=== PATIENT | female | born 1990 | race Caucasian/White ===

== ENCOUNTER 2017-01-24 20:30 | Emergency (ER) | payer OTHER ==
[2017-01-24 20:30] VITALS: BMI 21.2
[2017-01-24 20:37] VITALS: BP 106/71; PULSE 70; TEMP 98; O2SAT 98
[2017-01-24 21:00] LABS: RBC URINE 91 /hpf (0-3); URINE BACTERIA OCC (<OCC); URINE BILIRUBIN NEGATIVE (NEGATIVE); URINE BLOOD 3+ (NEGATIVE); URINE COLOR Yellow (YELLOW); URINE GLUCOSE (UA) NORMAL (Normal); URINE KETONE NEGATIVE (NEGATIVE); URINE LEUKOCYTE ESTERASE NEG Leu/uL (Negative); URINE PROTEIN 1+ mg/dL (NEGATIVE); URINE UROBILINOGEN NORMAL mg/dL (0.2-1.0); WBC URINE 5 /hpf (0-5)
--- NOTE | 2017-01-24 22:03 | C.PDOC ---
History Of Present Illness A 26 year old female presents to the emergency room with complaints of vaginal pruritis and vaginal discharge for 1 week. Patient was seen by [facility] 2 weeks ago and was diagnosed with bacterial vaginosis. Patient was given Metrogel which finished 3 days ago. Patient reports continued discharge. Patient states that she went to the [facility] and was told to wait a little bit longer for symptoms to resolve. Patient felt uncomfortable and decided to come to the ER. Patient denies any dysuria, frequency, hematuria, abdominal pain, back pain, incontinence, fever, chills, or any other complaints. Time Seen by Provider: 01/24/17 20:48 Chief Complaint (Nursing): Female Genitourinary History Per: Patient History/Exam Limitations: no limitations Onset/Duration Of Symptoms: Other (1 week) Current Symptoms Are (Timing): Still Present Severity: Mild Quality Of Discomfort: Other (Uncomfortable) Associated Symptoms: denies: Fever, Chills, Urinary Symptoms Alleviating Factors: None Recent travel outside of the [place]: No Past Medical History Reviewed: Historical Data, Nursing Documentation, Vital Signs Vital Signs: Last Vital Signs Temp 98 F 01/24/17 20:35 Pulse 70 01/24/17 20:35 Resp 20 01/24/17 22:20 BP 106/71 01/24/17 20:35 Pulse Ox 98 01/24/17 22:33 - [facility] Procedures INJECT/INFUSE NEC (06/10/13) Family History: States: Unknown Family Hx - Social History Hx Tobacco Use: No Hx Alcohol Use: No Hx Substance Use: No - Immunization History Hx Tetanus Toxoid Vaccination: No Hx Influenza Vaccination: No Hx Pneumococcal Vaccination: No Review Of Systems Except As Marked, All Systems Reviewed And Found Negative. Constitutional: Negative for: Fever, Chills Genitourinary: Positive for: Vaginal Discharge. Negative for: Dysuria, Frequency, Incontinence, Hematuria Physical Exam - Physical Exam Appears: Well Skin: Normal Color, Warm, Dry Head: Atraumatic, Normacephalic Eye(s): bilateral: Normal Inspection Cardiovascular: Rhythm Regular Respiratory: Normal Breath Sounds, No Rales, No Rhonchi, No Wheezing Gastrointestinal/Abdominal: Soft, No Tenderness, No Guarding, No Rebound Pelvic: No Vaginal Bleeding, Vaginal Discharge (White clumps of cottage cheese like discharge), No Cervical Motion Tenderness, No Adnexal Tenderness, No Mass Extremity: Normal ROM, No Tenderness, Swelling (Volar swelling) Neurological/Psych: Oriented x3, Normal Speech ED Course And Treatment - Laboratory Results Urine POC: Negative O2 Sat by Pulse Oximetry: 98 Progress Note: Urine Preg was negative. Patient was swabbed, but didn't treat for GC/Chlamydia because clinical presentation looks like vaginitis. Patient received Diflucan and prescription for tablets to take in 1 week, if symptoms do not resolve. Patient denies any abdominal pain, vaginal bleeding, dysuria, frequency, back pain, or any other complaints. Patient is afebrile and stable for discharge. Patient instructed to follow up with [facility] within 1-2 days. Disposition - Disposition Disposition: HOME/ ROUTINE Disposition Time: 22:00 Condition: STABLE Additional Instructions: Follow up with your OBGYN within 1-2 days. Return to Ed if feel worse. Prescriptions: Fluconazole [Diflucan] 150 mg PO ONCE #1 tab Instructions: Vulvovaginal Candidiasis (ED) - Clinical Impression Clinical Impression: Candidal vulvovaginitis - Scribe Statement The provider has reviewed the documentation as recorded by the Scribmigel Galvan All medical record entries made by the Danielaibmigel were at my direction and personally dictated by me. I have reviewed the chart and agree that the record accurately reflects my personal performance of the history, physical exam, medical decision making, and the department course for this patient. I have also personally directed, reviewed, and agree with the discharge instructions and disposition.
[2017-01-24 22:21] VITALS: RESP 20
== END 2017-01-24 22:20 | disposition home or self-care (01) ==
LOC: C.ER 20:30
DX: B37.3 Candidiasis of vulva and vagina (principal)

== ENCOUNTER 2017-05-09 19:10 | Emergency (ER) | payer OTHER ==
[2017-05-09 19:10] VITALS: BMI 21.2
[2017-05-09 19:44] VITALS: BP 111/74; PULSE 85; RESP 16; TEMP 98; O2SAT 100
[2017-05-09 20:29] LABS: RBC URINE 24 /hpf (0-3); URINE BILIRUBIN NEGATIVE (NEGATIVE); URINE BLOOD 2+ (NEGATIVE); URINE COLOR Yellow (YELLOW); URINE GLUCOSE (UA) NORMAL (Normal); URINE KETONE NEGATIVE (NEGATIVE); URINE LEUKOCYTE ESTERASE NEG Leu/uL (Negative); URINE PROTEIN NEGATIVE (NEGATIVE); URINE UROBILINOGEN NORMAL mg/dL (0.2-1.0); WBC URINE < 1 /hpf (0-5)
--- NOTE | 2017-05-09 20:51 | C.PDOC ---
History Of Present Illness 26 yo female come in for evaluation of vaginal irritation, white discharges developed for past few days " after sexual intercourse and condom broke". Otherwise, pt denies fever, chills, sore throat, abd. pain, N/V, back pain, hematuria, denies lesion. Ambulate to ED for evaluation, not in any apparent distress. Time Seen by Provider: 05/09/17 19:44 Chief Complaint (Nursing): Female Genitourinary History Per: Patient Onset/Duration Of Symptoms: Gradual Past Medical History Reviewed: Historical Data, Nursing Documentation, Vital Signs Vital Signs: Last Vital Signs Temp 98 F 05/09/17 19:35 Pulse 85 05/09/17 19:35 Resp 16 05/09/17 19:35 BP 111/74 05/09/17 19:35 Pulse Ox 100 05/09/17 19:35 - Medical History PMH: No Chronic Diseases Surgical History: No Surg Hx - [facility] Procedures INJECT/INFUSE NEC (06/10/13) Family History: States: No Known Family Hx - Social History Hx Tobacco Use: No Hx Alcohol Use: No Hx Substance Use: No - Immunization History Hx Tetanus Toxoid Vaccination: No Hx Influenza Vaccination: No Hx Pneumococcal Vaccination: No Review Of Systems Except As Marked, All Systems Reviewed And Found Negative. Constitutional: Negative for: Fever, Chills ENT: Negative for: Ear Discharge, Nose Discharge, Throat Pain Cardiovascular: Negative for: Chest Pain Respiratory: Negative for: Cough, Shortness of Breath, Wheezing Gastrointestinal: Negative for: Nausea, Vomiting, Abdominal Pain Genitourinary: Positive for: Vaginal Discharge. Negative for: Dysuria, Frequency, Incontinence, Hematuria, Vaginal Bleeding, Rash Musculoskeletal: Negative for: Back Pain Skin: Negative for: Rash Neurological: Negative for: Weakness, Numbness, Altered Mental Status, Headache , Dizziness Physical Exam - Physical Exam Appears: Well, Non-toxic, No Acute Distress Skin: Normal Color, Warm, No Rash Nose: No Discharge Oral Mucosa: Moist, No Drooling Throat: No Erythema, No Exudate, No Drooling Neck: Supple Cardiovascular: Rhythm Regular Respiratory: No Decreased Breath Sounds, No Accessory Muscle Use, No Stridor, No Wheezing Gastrointestinal/Abdominal: Soft, No Tenderness, No Distention, No Guarding Back: No CVA Tenderness Pelvic: Other (refused) Extremity: Normal ROM, No Tenderness, No Pedal Edema, No Deformity Neurological/Psych: Oriented x3, Normal Speech ED Course And Treatment - Laboratory Results Urine POC: Negative O2 Sat by Pulse Oximetry: 100 Pulse Ox Interpretation: Normal Progress Note: On re-evaluation, pt is afebrile, hemodynamicaly stable. Non- toxic. Ambulatory in ED. PuslEOx 100% RA. ENT: no acute findings. Lungs: CT B/L, BS equal B/L. ABd: benign, (-) guarding, (-) rebound. Back: (-) CVA tenderness. UA review and appears normal. Pt was offered STD tx-refused, pt sts " has scheduled appoitment next week with [facility] and will do all there". Pt has clinical findings c/w vulvovaginitis. Pt advised and ref. to F/U with [facility] as scheduled. return to ED if any worsening or new changes. Disposition Counseled Patient/Family Regarding: Studies Performed, Diagnosis, Need For Followup, Rx Given - Disposition [facility] Disposition: HOME/ ROUTINE Disposition Time: 20:51 Condition: STABLE Additional Instructions: Encourage fluids Take medication as prescribed Follow up with [facility] in 2-3 days for re-evaluation. Return to ED if any worsening or new changes. Prescriptions: Miconazole/Cleanser 17 On Wipe [Monistat 7 Combination Pack] 1 each VG HS #1 kit Instructions: Vulvovaginal Candidiasis (ED) Forms: [employer] (Yakut) - Clinical Impression Clinical Impression: Vaginitis and vulvovaginitis
== END 2017-05-09 21:07 | disposition home or self-care (01) ==
LOC: C.ER 19:10
DX: N76.0 Acute vaginitis (principal)

== ENCOUNTER 2017-06-28 23:27 | Emergency (ER) | payer OTHER ==
[2017-06-28 23:28] VITALS: BMI 21.2
--- NOTE | 2017-06-29 00:45 | C.PDOC ---
History Of Present Illness 26 year old female who presents to the ER with a complaint of an itchy insect bite to the right arm and right leg. Denies difficulty breathing, fever, or recent travel. Time Seen by Provider: 06/28/17 23:58 Chief Complaint (Nursing): Abnormal Skin Integrity History Per: Patient History/Exam Limitations: no limitations Onset/Duration Of Symptoms: Hrs Current Symptoms Are (Timing): Still Present Location Of Injury: Right: Arm, Leg Quality Of Symptoms: Itching Recent travel outside of the [place]: No Past Medical History Reviewed: Historical Data, Nursing Documentation, Vital Signs Vital Signs: Last Vital Signs Temp 98 F 06/29/17 00:50 Pulse 77 06/29/17 00:50 Resp 17 06/29/17 00:50 BP 123/79 06/29/17 00:50 Pulse Ox 98 06/29/17 02:57 - Medical History PMH: No Chronic Diseases Surgical History: No Surg Hx - [facility] Procedures INJECT/INFUSE NEC (06/10/13) Family History: States: Unknown Family Hx - Social History Hx Tobacco Use: No Hx Alcohol Use: No Hx Substance Use: No - Immunization History Hx Tetanus Toxoid Vaccination: No Hx Influenza Vaccination: No Hx Pneumococcal Vaccination: No Review Of Systems Constitutional: Negative for: Fever, Chills ENT: Negative for: Throat Swelling Respiratory: Negative for: Shortness of Breath, Wheezing Skin: Positive for: Rash Physical Exam - Physical Exam Appears: Non-toxic, No Acute Distress Skin: Warm, Dry, Rash (Scattered erythematous papules to right upper extremity and bilateral lower extremities. No swelling or warmth.) Head: Atraumatic, Normacephalic Oral Mucosa: Moist Chest: Symmetrical, No Tenderness Cardiovascular: Rhythm Regular, No Murmur Respiratory: Normal Breath Sounds, No Rales, No Rhonchi, No Stridor, No Wheezing Extremity: Normal ROM (x4) Pulses: Left Radial: Normal, Right Radial: Normal, Left Dorsalis Pedis: Normal, Right Dorsalis Pedis: Normal Neurological/Psych: Oriented x3, Normal Speech, Normal Cognition Gait: Steady ED Course And Treatment O2 Sat by Pulse Oximetry: 98 (Room air) Pulse Ox Interpretation: Normal Progress Note: Benadryl administered. On reevaluation, patient itchiness has resolved, will discharge home with wound care instructions and instruct to follow up with PMD. Disposition Counseled Patient/Family Regarding: Diagnosis, Need For Followup, Rx Given - Disposition Referrals: Bernardo Carey MD [Staff Provider] - Disposition: HOME/ ROUTINE Disposition Time: 00:43 Condition: STABLE Additional Instructions: May use hydrocortisone cream Claritin or zyrtec if needed for itching Return to ER if increasing pain, fever, swelling or draining Instructions: Insect Bite or Sting (ED) Forms: [employer] (Macanese) - Clinical Impression Clinical Impression: Insect bite - Scribe Statement The provider has reviewed the documentation as recorded by the Scribmigel Basurto All medical record entries made by the Danielaibmigel were at my direction and personally dictated by me. I have reviewed the chart and agree that the record accurately reflects my personal performance of the history, physical exam, medical decision making, and the department course for this patient. I have also personally directed, reviewed, and agree with the discharge instructions and disposition.
[2017-06-29 00:51] VITALS: BP 123/79; PULSE 77; RESP 17; TEMP 98
[2017-06-29 02:34] VITALS: O2SAT 98
== END 2017-06-29 00:52 | disposition home or self-care (01) ==
LOC: C.ER 23:27
DX: S40.861A Insect bite (nonvenomous) of right upper arm, initial encounter (principal); S80.862A Insect bite (nonvenomous), left lower leg, initial encounter; S80.861A Insect bite (nonvenomous), right lower leg, initial encounter; W57.XXXA Bitten or stung by nonvenomous insect and other nonvenomous arthropods, initial encounter; Y93.9 Activity, unspecified; Y92.9 Unspecified place or not applicable

== ENCOUNTER 2017-07-12 13:56 | Emergency (ER) | payer OTHER ==
[2017-07-12 13:56] VITALS: BMI 21.2
[2017-07-12 14:01] VITALS: TEMP 98.3
--- NOTE | 2017-07-12 14:44 | C.PDOC ---
History Of Present Illness 26 year old female presents to the ED for evaluation of vaginal irritation and itchiness associated with scant white discharged which developed over the past week. Patient admits she was using [id number] medication for yeast infection without significant improvements. Patient denies fever, chills, abdominal pain, dysuria, hematuria, increased urinary frequency. Time Seen by Provider: 07/12/17 14:13 Chief Complaint (Nursing): Female Genitourinary History Per: Patient History/Exam Limitations: no limitations Onset/Duration Of Symptoms: Days (1 week) Current Symptoms Are (Timing): Still Present Quality Of Discomfort: denies: "Pain" Associated Symptoms: denies: Fever, Chills, Urinary Symptoms, Other Additional History Per: Patient Abnormal Vaginal Bleeding: No Past Medical History Reviewed: Historical Data, Nursing Documentation, Vital Signs Vital Signs: Last Vital Signs Temp 98.3 F 07/12/17 13:59 Pulse 81 07/12/17 16:00 Resp 16 07/12/17 16:00 BP 138/84 07/12/17 16:00 Pulse Ox 98 07/12/17 16:00 - Medical History PMH: No Chronic Diseases Surgical History: No Surg Hx - [facility] Procedures INJECT/INFUSE NEC (06/10/13) Family History: States: Unknown Family Hx - Social History Hx Tobacco Use: No Hx Alcohol Use: No Hx Substance Use: No - Immunization History Hx Tetanus Toxoid Vaccination: No Hx Influenza Vaccination: No Hx Pneumococcal Vaccination: No Review Of Systems Constitutional: Negative for: Fever, Chills Gastrointestinal: Negative for: Abdominal Pain Genitourinary: Positive for: Vaginal Discharge (scant, white ), Other (vaginal irritation/itching ). Negative for: Dysuria, Frequency, Hematuria Physical Exam - Physical Exam Appears: Non-toxic, No Acute Distress Skin: Normal Color, Warm, Dry Oral Mucosa: Moist Throat: No Erythema Neck: Supple Chest: Symmetrical, No Deformity Cardiovascular: Rhythm Regular, No Murmur Respiratory: No Decreased Breath Sounds, No Accessory Muscle Use, No Rales, No Rhonchi, No Wheezing Gastrointestinal/Abdominal: Soft, No Tenderness, No Guarding, No Rebound Pelvic: No Vaginal Bleeding, Vaginal Discharge (scant white thick discharges), No Cervical Motion Tenderness, No Adnexal Tenderness Extremity: Normal ROM, No Pedal Edema Neurological/Psych: Oriented x3, Normal Speech, Normal Cognition Gait: Steady ED Course And Treatment O2 Sat by Pulse Oximetry: 100 (on RA) Pulse Ox Interpretation: Normal Progress Note: Urinalysis ordered and reviewed. On re-eval, pt is afebrile, hemodynamicaly stable. Non-toxic. ENT: No acute finidngs. Abd: benign. Back : (-) CVA tenderness. UA results review and appears normal. Pt has clinical findings c/w vulvovaginitis. Pt advised. ref to f/u with EEG TECH in 2-3 days for re-eval. return if any new changes. Disposition Counseled Patient/Family Regarding: Studies Performed, Diagnosis, Need For Followup, Rx Given - Disposition [facility]] Disposition: HOME/ ROUTINE Disposition Time: 15:23 Condition: STABLE Additional Instructions: Take medication as prescribed Follow up with EEG TECH in 2-3 days for re-evaluation. Return to ED if any worsening or new changes. 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 - Scribe Statement The provider has reviewed the documentation as recorded by the Scribe (Antoinette Musa) All medical record entries made by the Scribe were at my direction and personally dictated by me. I have reviewed the chart and agree that the record accurately reflects my personal performance of the history, physical exam, medical decision making, and the department course for this patient. I have also personally directed, reviewed, and agree with the discharge instructions and disposition.
[2017-07-12 15:31] LABS: URINE BACTERIA RARE (<OCC); WBC URINE 1 /hpf (0-5)
[2017-07-12 15:33] LABS: URINE COLOR YELLOW (YELLOW)
[2017-07-12 15:34] LABS: URINE BILIRUBIN NEGATIVE (NEGATIVE); URINE GLUCOSE (UA) NEGATIVE (Normal); URINE KETONE NEGATIVE (NEGATIVE)
[2017-07-12 15:35] LABS: RBC URINE 18 /hpf (0-3); URINE BLOOD 2+ (NEGATIVE); URINE LEUKOCYTE ESTERASE NEGATIVE Leu/uL (Negative); URINE PROTEIN NEGATIVE (NEGATIVE); URINE UROBILINOGEN 0.2 mg/dL (0.2-1.0)
[2017-07-12 16:03] VITALS: BP 138/84; PULSE 81; RESP 16
[2017-07-13 21:10] VITALS: O2SAT 100
== END 2017-07-12 16:00 | disposition home or self-care (01) ==
LOC: C.ER 13:56
DX: N76.0 Acute vaginitis (principal)

== ENCOUNTER 2017-10-22 23:51 | Emergency (ER) | payer OTHER ==
[2017-10-22 23:52] VITALS: BMI 21.2
--- NOTE | 2017-10-23 01:12 | C.PDOC ---
History Of Present Illness 27 years old female presents to ED for an evaluation of fever, bodyaches, sore throat that began 2 days ago. Patient also reports " dehydrated, my urine has been dark color" . Otherwise, pt denies severe headache, neck pain, drooling, dyspnea, cough, wheezing, abdominal pain, V/D, urinary symptoms, rash, denies known sick contact. Ambulate to ED for evaluation, not in any apparent distress. Time Seen by Provider: 10/23/17 00:11 Chief Complaint (Nursing): ENT Problem History Per: Patient History/Exam Limitations: no limitations Onset/Duration Of Symptoms: Days (2) Current Symptoms Are (Timing): Still Present Recent travel outside of the [place]: No Past Medical History Reviewed: Historical Data, Nursing Documentation, Vital Signs Vital Signs: Last Vital Signs Temp 102.8 F H 10/23/17 00:12 Pulse 107 H 10/23/17 00:12 Resp 20 10/23/17 00:12 BP 120/86 10/23/17 00:12 Pulse Ox 98 10/23/17 01:24 - Medical History PMH: No Chronic Diseases Surgical History: No Surg Hx - [facility] Procedures INJECT/INFUSE NEC (06/10/13) Family History: States: Unknown Family Hx - Social History Hx Tobacco Use: No Hx Alcohol Use: No Hx Substance Use: No - Immunization History Hx Tetanus Toxoid Vaccination: No Hx Influenza Vaccination: No Hx Pneumococcal Vaccination: No Review Of Systems Constitutional: Positive for: Fever ENT: Positive for: Other (Sore throat) Respiratory: Negative for: Cough Gastrointestinal: Negative for: Nausea, Vomiting, Abdominal Pain Genitourinary: Positive for: Other (Discoloration of urine). Negative for: Dysuria, Frequency, Hematuria Musculoskeletal: Positive for: Other (Bodyaches) Neurological: Negative for: Weakness, Numbness, Headache, Dizziness Physical Exam - Physical Exam Appears: Well, Non-toxic Skin: Warm, Dry, No Rash Head: Normacephalic Eye(s): bilateral: PERRL Ear(s): Bilateral: Normal Nose: No Flaring, Discharge (B/L nasal congestion ) Oral Mucosa: Moist, No Drooling Tongue: Normal Appearing Lips: Normal Appearing Throat: Erythema (B/L pharyngeal with mild edema), Exudate (Bilateral tonsils with edema. Uvula midline, no edema.), No Drooling Neck: Trachea Midline, Supple, Other ((-) meningeal sign) Chest: No Tenderness Cardiovascular: Rhythm Regular Respiratory: No Decreased Breath Sounds, No Accessory Muscle Use, No Stridor, No Wheezing Gastrointestinal/Abdominal: Soft, No Tenderness, No Organomegaly, No Distention , No Guarding, No Rebound Back: No CVA Tenderness Neurological/Psych: Oriented x3, Normal Speech, Normal Cognition, Normal Motor, Normal Sensation, Normal Reflexes ED Course And Treatment O2 Sat by Pulse Oximetry: 98 (RA) Pulse Ox Interpretation: Normal Progress Note: Administered Ibuprofen. Ordered flu AB swab, rapid strep, and urinalysis. On re-evaluation, pt reports " feels little better". Fever improved, hemodynamicaly stable. Non-toxic. Tolerate PO well in ED. Neck: Supple, (-) meningeal sign. ENT: no acute findings. Lungs: CTA B/L, BS equal B /L. Abd: benign, (-) guaridng, (-) rebound. neuorlogical intact. Influenza AND RST (-). UA results review (+) UTI. Pt has clinical findings c/w acute pharyngitis/tonsilitis, UTI. PT advised. REf. to F/u with PMD in 2-3 days for re-eavl. return if any new changes. Disposition Counseled Patient/Family Regarding: Studies Performed, Diagnosis, Need For Followup, Rx Given - Disposition Referrals: Bernardo Carey MD [Staff Provider] - Disposition: HOME/ ROUTINE Disposition Time: 01:49 Condition: STABLE Additional Instructions: BEDREST FOR 2-3 DAYS TAKE MEDICATION PRESCRIBED ENCOURAGE FLUIDS FOLLOW UP WITH PMD, [facility] IN 2-3 DAYS FOR RE-EVALUATION. RETURN TO ED IF ANY WORSENING OR NEW CHANGES. 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 - Scribe Statement The provider has reviewed the documentation as recorded by the Scribe Taras Flores All medical record entries made by the Scribe were at my direction and personally dictated by me. I have reviewed the chart and agree that the record accurately reflects my personal performance of the history, physical exam, medical decision making, and the department course for this patient. I have also personally directed, reviewed, and agree with the discharge instructions and disposition.
[2017-10-23 01:18] LABS: HCG,QUALITATIVE URINE NEGATIVE (NEGATIVE)
[2017-10-23 01:20] LABS: SQUAMOUS EPITHIAL 7 /hpf (0-5); URINE BACTERIA FEW (<OCC); URINE BILIRUBIN NEGATIVE (NEGATIVE); URINE BLOOD 3+ (NEGATIVE); URINE CLARITY Hazy (Clear); URINE COLOR Red (YELLOW); URINE GLUCOSE (UA) 2+ mg/dL (Normal); URINE LEUKOCYTE ESTERASE NEG Leu/uL (Negative); URINE NITRATE NEGATIVE (NEGATIVE); URINE PROTEIN 2+ mg/dL (NEGATIVE); URINE UROBILINOGEN NORMAL mg/dL (0.2-1.0); WBC CLUMPS MANY /hpf
[2017-10-23 01:48] LABS: INFLUENZA A B NEGATIVE FOR FLU A/B (NEGATIVE)
[2017-10-23] MEDS ORDERED: cefTRIAXone (Rocephin) 250 mg Inj IM STA (01:48)
[2017-10-23 02:03] VITALS: BP 112/73; PULSE 97; RESP 18; TEMP 99
[2017-10-23 02:14] VITALS: O2SAT 98
== END 2017-10-23 02:52 | disposition home or self-care (01) ==
LOC: C.ER 23:51
DX: J03.90 Acute tonsillitis, unspecified (principal); N39.0 Urinary tract infection, site not specified; N76.0 Acute vaginitis; Z87.891 Personal history of nicotine dependence
CPT/HCPCS: 81001; 84703; 87070; 87430; 87804; 96372; 99282; J0696

== ENCOUNTER 2018-06-26 11:11 | Emergency (ER) | payer OTHER ==
[2018-06-26 11:11] VITALS: BMI 21.2
[2018-06-26 11:30] VITALS: BP 117/78; PULSE 77; RESP 18; TEMP 98.1; O2SAT 100
[2018-06-26 12:50] LABS: HCG,QUALITATIVE URINE NEGATIVE (NEGATIVE)
[2018-06-26 13:40] LABS: SQUAMOUS EPITHIAL 18 /hpf (0-5); URINE BACTERIA OCC (<OCC); URINE BILIRUBIN NEGATIVE (NEGATIVE); URINE BLOOD 3+ (NEGATIVE); URINE CLARITY Hazy (Clear); URINE COLOR Yellow (YELLOW); URINE GLUCOSE (UA) NORMAL (Normal); URINE LEUKOCYTE ESTERASE 3+ Leu/uL (Negative); URINE PROTEIN 1+ mg/dL (NEGATIVE); URINE UROBILINOGEN NORMAL mg/dL (0.2-1.0)
--- NOTE | 2018-06-26 14:10 | C.PDOC ---
History Of Present Illness 27 y/o female presents to the ED complaining of vaginal itching for the past 2 days. Associated with white discharge. Denies any fever, vaginal bleeding, and abdominal pain. Time Seen by Provider: 06/26/18 11:59 Chief Complaint (Nursing): Female Genitourinary History Per: Patient History/Exam Limitations: no limitations Onset/Duration Of Symptoms: Days Current Symptoms Are (Timing): Still Present Past Medical History Reviewed: Historical Data, Nursing Documentation, Vital Signs Vital Signs: Last Vital Signs Temp 98.1 F 06/26/18 11:28 Pulse 77 06/26/18 11:28 Resp 18 06/26/18 14:25 BP 117/78 06/26/18 11:28 Pulse Ox 100 06/26/18 14:10 - Medical History PMH: No Chronic Diseases Surgical History: No Surg Hx - [facility] Procedures INJECT/INFUSE NEC (06/10/13) Family History: States: Unknown Family Hx - Social History Hx Tobacco Use: No Hx Alcohol Use: No Hx Substance Use: No - Immunization History Hx Tetanus Toxoid Vaccination: No Hx Influenza Vaccination: No Hx Pneumococcal Vaccination: No Review Of Systems Constitutional: Negative for: Fever, Chills Gastrointestinal: Negative for: Vomiting, Abdominal Pain Genitourinary: Positive for: Vaginal Discharge (white), Other (Vaginal itching/ irritation). Negative for: Dysuria, Frequency, Incontinence, Vaginal Bleeding Physical Exam - Physical Exam Appears: Non-toxic, No Acute Distress Skin: Warm, Dry Head: Atraumatic, Normacephalic Eye(s): bilateral: Normal Inspection Neck: Normal ROM Chest: Symmetrical Cardiovascular: Rhythm Regular, No Murmur Respiratory: Normal Breath Sounds, No Accessory Muscle Use, Other (no respiratory distress) Gastrointestinal/Abdominal: Soft, No Tenderness, No Guarding, No Rebound Pelvic: No Vaginal Bleeding, Vaginal Discharge (white discharge), No Cervical Motion Tenderness, No Adnexal Tenderness, Other (Patient has +vesicles to left labia, Exam chaperoned by GREGORIO Wade) Extremity: Bilateral: Atraumatic, Normal Color And Temperature, Normal ROM Neurological/Psych: Oriented x3, Normal Speech ED Course And Treatment O2 Sat by Pulse Oximetry: 100 (RA) Pulse Ox Interpretation: Normal Medical Decision Making Medical Decision Making: On further discussion, patient is aware of vesicular rash and has known hx of genital herpes. States she currently has an outbreak. Plan: * Urinalysis * Urine culture * Urine HCG Patient treated with diflucan. On reevaluation she remains afebrile, AAOx3, in no acute distress, and is stable for discharge home. Disposition - Disposition Referrals: Bernardo Carey MD [Staff Provider] - Disposition: HOME/ ROUTINE Disposition Time: 14:06 Condition: STABLE Additional Instructions: Follow up with the medical doctor within 1-2 days. Return if worsened. 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 - Scribe Statement The provider has reviewed the documentation as recorded by the Scribe (Jo Ann Espinoza) All medical record entries made by the Scribe were at my direction and personally dictated by me. I have reviewed the chart and agree that the record accurately reflects my personal performance of the history, physical exam, medical decision making, and the department course for this patient. I have also personally directed, reviewed, and agree with the discharge instructions and disposition.
== END 2018-06-26 14:26 | disposition home or self-care (01) ==
LOC: C.ER 11:11
DX: B37.3 Candidiasis of vulva and vagina (principal); N39.0 Urinary tract infection, site not specified; A60.00 Herpesviral infection of urogenital system, unspecified

== ENCOUNTER 2018-08-20 00:15 | Emergency (ER) | payer OTHER ==
[2018-08-20 00:15] VITALS: BMI 21.2
[2018-08-20 00:27] VITALS: TEMP 98.7
[2018-08-20] MEDS ORDERED: cefTRIAXone (Rocephin) 250 mg Inj IM STA (00:56)
--- NOTE | 2018-08-20 01:02 | C.PDOC ---
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 Patient states she usually get some vaginal discharge but states this time is different. 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 Patient denies fever, chills, nausea, vomit, diarrhea, rash, vaginal bleeding, dyspareunia, back pain, dysuria, hematuria. Time Seen by Provider: 08/20/18 00:28 Chief Complaint (Nursing): Female Genitourinary History Per: Patient History/Exam Limitations: no limitations Onset/Duration Of Symptoms: Hrs Current Symptoms Are (Timing): Still Present Quality: Positive for: Other Recent travel outside of the [place]: No Additional History Per: Patient Past Medical History Reviewed: Historical Data, Nursing Documentation, Vital Signs Vital Signs: Last Vital Signs Temp 98.7 F 08/20/18 00:26 Pulse 79 08/20/18 00:26 Resp BP 120/77 08/20/18 00:26 Pulse Ox 100 08/20/18 00:26 - Medical History PMH: No Chronic Diseases Surgical History: No Surg Hx - [facility] Procedures INJECT/INFUSE NEC (06/10/13) Family History: States: Unknown Family Hx - Social History Hx Tobacco Use: No Hx Alcohol Use: No Hx Substance Use: No - Immunization History Hx Tetanus Toxoid Vaccination: No Hx Influenza Vaccination: No Hx Pneumococcal Vaccination: No Review Of Systems Constitutional: Negative for: Fever, Chills Cardiovascular: Negative for: Chest Pain Respiratory: Negative for: Shortness of Breath Gastrointestinal: Negative for: Nausea, Vomiting, Abdominal Pain Genitourinary: Positive for: Vaginal Discharge. Negative for: Dysuria, Hematuria, Vaginal Bleeding Musculoskeletal: Negative for: Back Pain Skin: Negative for: Rash Physical Exam - Physical Exam Appears: Non-toxic, No Acute Distress Skin: Normal Color, Warm, Dry Head: Atraumatic, Normacephalic Eye(s): bilateral: Normal Inspection Neck: Normal ROM, Supple Chest: Symmetrical Cardiovascular: Rhythm Regular Respiratory: Normal Breath Sounds, No Rales, No Rhonchi, No Wheezing Gastrointestinal/Abdominal: Soft, No Tenderness, No Guarding, No Rebound Pelvic: Vaginal Discharge (thick yellow foul smelling), Cervical Motion Tenderness, No Adnexal Tenderness, No Mass Extremity: Normal ROM Neurological/Psych: Oriented x3, Normal Speech, Normal Cognition Gait: Steady ED Course And Treatment - Laboratory Results Urine POC: Negative O2 Sat by Pulse Oximetry: 100 (ON RA) Pulse Ox Interpretation: Normal Progress Note: Plan: - Chlamydia/GC. - Rocephin 250 mg IM. - Zithromax 1,000 mg PO. Patient was initiated on prophylaxis and was educated on safe sex. [place] ent was advised to follow up with STD clinic or [employer] MACHINE OPERATOR for further STD tests. Disposition Counseled Patient/Family Regarding: Diagnosis, Need For Followup, Rx Given - Disposition Referrals: Non [facility] Provider, [Primary Care Provider] - Disposition: HOME/ ROUTINE Disposition Time: 00:59 Condition: STABLE Additional Instructions: Please follow up with [employer] Operations Manager in 2-3 days for reeval Take flagyl as directed Have partner evaluated or tested for STD Return to ER if worse Prescriptions: metroNIDAZOLE [Flagyl] 500 mg PO BID #14 tab Instructions: Bacterial Vaginosis (DC), Screening for Sexually Transmitted Infections Forms: [employer] Connect (Puerto Rican) - Clinical Impression Clinical Impression: Cervicitis - 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 - Scribe Statement The provider has reviewed the documentation as recorded by the Scribe Dima Bejarano All medical record entries made by the Danielaibmigel were at my direction and personally dictated by me. I have reviewed the chart and agree that the record accurately reflects my personal performance of the history, physical exam, medical decision making, and the department course for this patient. I have also personally directed, reviewed, and agree with the discharge instructions and disposition.
[2018-08-20 01:42] VITALS: BP 128/72; PULSE 75; RESP 18
[2018-08-20 02:01] VITALS: O2SAT 100
== END 2018-08-20 01:44 | disposition home or self-care (01) ==
LOC: C.ER 00:15 → SUPCPDRO 00:15 → C.ER 01:44
DX: N72 Inflammatory disease of cervix uteri (principal)
CPT/HCPCS: 87491; 87591; 96372; 99284; J0696

== ENCOUNTER 2018-09-19 18:27 | Emergency (ER) | payer OTHER ==
[2018-09-19 18:28] VITALS: BMI 21.2
[2018-09-19 18:41] VITALS: RESP 18
[2018-09-19 19:12] LABS: HCG,QUALITATIVE URINE NEGATIVE (NEGATIVE)
[2018-09-19 19:15] LABS: SQUAMOUS EPITHIAL 4 /hpf (0-5); URINE BILIRUBIN NEGATIVE (NEGATIVE); URINE BLOOD 3+ (NEGATIVE); URINE CLARITY Hazy (Clear); URINE COLOR Yellow (YELLOW); URINE GLUCOSE (UA) NORMAL (Normal); URINE LEUKOCYTE ESTERASE TRACE Leu/uL (Negative); URINE PROTEIN 2+ mg/dL (NEGATIVE); URINE UROBILINOGEN NORMAL mg/dL (0.2-1.0)
[2018-09-19] MEDS ORDERED: cefTRIAXone 250 MG, Water For Injection 20 ML IM ONE (19:24)
[2018-09-19] MEDS ORDERED: cefTRIAXone 250 MG, Lidocaine Hydrochloride 1% 1 ML IM ONE (19:36)
--- NOTE | 2018-09-19 20:25 | C.PDOC ---
History Of Present Illness 28 year old female presents to the emergency department with three days of vaginal discharge, described as white/yellow and odorous. Patient denies fever, abdominal pain, vomiting, diarrhea, and dysuria. Time Seen by Provider: 09/19/18 18:46 Chief Complaint (Nursing): Female Genitourinary History Per: Patient History/Exam Limitations: no limitations Onset/Duration Of Symptoms: Days (3) Current Symptoms Are (Timing): Still Present Quality Of Discomfort: denies: "Pain" Associated Symptoms: Other (vaginal discharge) Past Medical History Reviewed: Historical Data, Nursing Documentation, Vital Signs Vital Signs: Last Vital Signs Temp 98.1 F 09/19/18 18:41 Pulse 90 09/19/18 18:41 Resp 18 09/19/18 18:41 BP 97/61 L 09/19/18 18:41 Pulse Ox 100 09/19/18 18:41 - Medical History PMH: No Chronic Diseases Surgical History: No Surg Hx - [facility] Procedures INJECT/INFUSE NEC (06/10/13) Family History: States: No Known Family Hx - Social History Hx Tobacco Use: No Hx Alcohol Use: No Hx Substance Use: No - Immunization History Hx Tetanus Toxoid Vaccination: No Hx Influenza Vaccination: No Hx Pneumococcal Vaccination: No Review Of Systems Except As Marked, All Systems Reviewed And Found Negative. Constitutional: Negative for: Fever Gastrointestinal: Negative for: Vomiting, Abdominal Pain, Diarrhea Genitourinary: Positive for: Vaginal Discharge. Negative for: Dysuria Physical Exam - Physical Exam Appears: Well, Non-toxic, No Acute Distress Skin: Normal Color, Warm, Dry Head: Atraumatic, Normacephalic Eye(s): bilateral: Normal Inspection, PERRL, EOMI Oral Mucosa: Moist Neck: Normal, Supple Chest: Symmetrical, No Tenderness Cardiovascular: Rhythm Regular, No Murmur Respiratory: No Rales, No Rhonchi, No Wheezing Gastrointestinal/Abdominal: Normal Exam, Soft, No Tenderness, No Guarding, No Rebound Pelvic: No Vaginal Bleeding, Vaginal Discharge ((+) white and yellow discharge), No Cervical Motion Tenderness, Other (Fabric Finisher: Jess Smart RN) Extremity: Normal ROM, No Tenderness, No Swelling Neurological/Psych: Oriented x3, Normal Speech, Normal Cognition, Normal Motor, Normal Sensation Gait: Steady ED Course And Treatment O2 Sat by Pulse Oximetry: 100 (RA) Pulse Ox Interpretation: Normal Progress Note: Plan: Chlamydia GC/RNA. Flagyl 500mg PO. Rocephin 250mg PO. Zithromax 1000mg PO. HCG Qualitative Urine. Urinalysis Disposition - Disposition Referrals: Jesus Hobbs MD [Staff Provider] - Disposition: HOME/ ROUTINE Disposition Time: 20:23 Condition: STABLE Additional Instructions: Follow up with the medical doctor within 1-2 days. Return if worsened. 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 - Scribe Statement The provider has reviewed the documentation as recorded by the Scribe (Jason Moses) All medical record entries made by the Scribe were at my direction and personally dictated by me. I have reviewed the chart and agree that the record accurately reflects my personal performance of the history, physical exam, medical decision making, and the department course for this patient. I have also personally directed, reviewed, and agree with the discharge instructions and disposition.
[2018-09-19 20:31] VITALS: BP 124/85; PULSE 84; TEMP 98.5
[2018-09-19 21:57] VITALS: O2SAT 100
== END 2018-09-19 20:43 | disposition home or self-care (01) ==
LOC: C.ER 18:27
DX: N76.0 Acute vaginitis (principal); B96.89 Other specified bacterial agents as the cause of diseases classified elsewhere

== ENCOUNTER 2018-10-15 00:44 | Emergency (ER) | payer OTHER ==
[2018-10-15 02:55] VITALS: BMI 23.0
[2018-10-15] MEDS ORDERED: cefTRIAXone (Rocephin) 250 mg Inj IM STA (03:06)
--- NOTE | 2018-10-15 03:16 | C.PDOC ---
History Of Present Illness 28 year old female presents to the ER with a complaint of whitish vaginal discharge and pelvic pain for the past 3 days. Denies fever or dysuria. Chief Complaint (Nursing): Female Genitourinary History Per: Patient History/Exam Limitations: no limitations Onset/Duration Of Symptoms: Days (3) Current Symptoms Are (Timing): Still Present Quality Of Discomfort: Unable To Describe Associated Symptoms: Other (Whitish vaginal discharge) Recent travel outside of the [place]: No Abnormal Vaginal Bleeding: No Past Medical History Reviewed: Historical Data, Nursing Documentation, Vital Signs - [facility] Procedures INJECT/INFUSE NEC (06/10/13) Family History: States: Unknown Family Hx - Social History Hx Tobacco Use: No Hx Alcohol Use: No Hx Substance Use: No - Immunization History Hx Tetanus Toxoid Vaccination: No Hx Influenza Vaccination: No Hx Pneumococcal Vaccination: No Review Of Systems Constitutional: Negative for: Fever, Chills Cardiovascular: Negative for: Chest Pain, Palpitations Respiratory: Negative for: Cough, Shortness of Breath Gastrointestinal: Negative for: Nausea, Vomiting Genitourinary: Positive for: Vaginal Discharge, Pelvic Pain Neurological: Negative for: Weakness, Numbness Physical Exam - Physical Exam Appears: Non-toxic Skin: Normal Color, Warm, Dry Head: Atraumatic, Normacephalic Eye(s): bilateral: Normal Inspection Oral Mucosa: Moist Chest: Symmetrical, No Tenderness Cardiovascular: Rhythm Regular Respiratory: Normal Breath Sounds, No Rales, No Rhonchi, No Wheezing Gastrointestinal/Abdominal: Soft, Tenderness (Mild hypogastric), No Guarding, No Rebound Back: No CVA Tenderness Pelvic: No Vaginal Bleeding, Vaginal Discharge (Yellowish white), No Cervical Motion Tenderness Neurological/Psych: Oriented x3, Normal Speech ED Course And Treatment Progress Note: Urinalysis ordered and GC/Chlamydia sent. Rocephin and zithromax administered. Disposition Counseled Patient/Family Regarding: Diagnosis - Disposition Referrals: [facility] [Outside] Disposition: HOME/ ROUTINE Disposition Time: 03:20 Condition: STABLE Prescriptions: RX: Doxycycline Hyclate 100 mg PO BID #14 capsule Instructions: Pelvic Inflammatory Disease (DC) Forms: [employer] (Syriac) - POA Present On Arrival: None - Clinical Impression Clinical Impression: PID (acute pelvic inflammatory disease) - Scribe Statement The provider has reviewed the documentation as recorded by the Scribe Preet Basurto All medical record entries made by the Scribe were at my direction and personally dictated by me. I have reviewed the chart and agree that the record accurately reflects my personal performance of the history, physical exam, medical decision making, and the department course for this patient. I have also personally directed, reviewed, and agree with the discharge instructions and disposition.
[2018-10-15 03:27] VITALS: BP 128/77; PULSE 68; RESP 14; TEMP 98.6; O2SAT 97
[2018-10-15 03:33] LABS: SQUAMOUS EPITHIAL 1 /hpf (0-5); URINE BACTERIA RARE (<OCC); URINE BILIRUBIN NEGATIVE (NEGATIVE); URINE BLOOD 2+ (NEGATIVE); URINE CLARITY Clear (Clear); URINE COLOR Yellow (YELLOW); URINE GLUCOSE (UA) NORMAL (Normal); URINE LEUKOCYTE ESTERASE NEG Leu/uL (Negative); URINE PROTEIN 1+ mg/dL (NEGATIVE); URINE UROBILINOGEN NORMAL mg/dL (0.2-1.0)
== END 2018-10-15 03:27 | disposition home or self-care (01) ==
LOC: C.ER 00:44
DX: N73.0 Acute parametritis and pelvic cellulitis (principal)
CPT/HCPCS: 81001; 87070; 87086; 87181; 87491; 87591; 96372; 99281; J0696

== ENCOUNTER 2018-10-23 23:01 | Emergency (ER) | payer OTHER ==
[2018-10-23 23:01] VITALS: BMI 23.0
[2018-10-23 23:09] VITALS: BP 117/74; PULSE 81; RESP 20; TEMP 99.1; O2SAT 100
[2018-10-23 23:44] LABS: SQUAMOUS EPITHIAL 1 /hpf (0-5); URINE BILIRUBIN NEGATIVE (NEGATIVE); URINE BLOOD 2+ (NEGATIVE); URINE CLARITY Clear (Clear); URINE COLOR Yellow (YELLOW); URINE GLUCOSE (UA) NORMAL (Normal); URINE LEUKOCYTE ESTERASE NEG Leu/uL (Negative); URINE PROTEIN 1+ mg/dL (NEGATIVE); URINE UROBILINOGEN NORMAL mg/dL (0.2-1.0)
[2018-10-24] MEDS ORDERED: cefTRIAXone (Rocephin) 250 mg Inj IM STA (00:18)
--- NOTE | 2018-10-24 00:51 | C.PDOC ---
History Of Present Illness 28 year old female was seen last week for vaginal discomfort and pelvic pain, treated with doxy and rocephin, and cultures were sent.She reports that 5 days after visit she had sexual intercourse with a different partner then with her previous partner again; 2 days after having sex with the newer partner she began having discomfort again. Patient is unsure if pain is due to antibiotics or yeast infection. Denies any other complaints. Chief Complaint (Nursing): Female Genitourinary History Per: Patient History/Exam Limitations: no limitations Onset/Duration Of Symptoms: Days Current Symptoms Are (Timing): Still Present Quality Of Discomfort: Unable To Describe Alleviating Factors: None Recent travel outside of the [place]: No Abnormal Vaginal Bleeding: No Past Medical History Reviewed: Historical Data, Nursing Documentation, Vital Signs Vital Signs: Last Vital Signs Temp 99.1 F 10/23/18 23:03 Pulse 81 10/23/18 23:03 Resp 20 10/23/18 23:03 BP 117/74 10/23/18 23:03 Pulse Ox 100 10/23/18 23:03 - [employer] Procedures INJECT/INFUSE NEC (06/10/13) Family History: States: Unknown Family Hx - Social History Hx Tobacco Use: No Hx Alcohol Use: No Hx Substance Use: No - Immunization History Hx Tetanus Toxoid Vaccination: Yes Hx Influenza Vaccination: No Hx Pneumococcal Vaccination: No Review Of Systems Constitutional: Negative for: Fever, Chills Eyes: Negative for: Pain, Redness ENT: Negative for: Mouth Swelling Cardiovascular: Negative for: Chest Pain Respiratory: Negative for: Cough, Shortness of Breath Gastrointestinal: Negative for: Nausea, Vomiting, Diarrhea Genitourinary: Positive for: Pelvic Pain. Negative for: Dysuria, Hematuria Musculoskeletal: Negative for: Back Pain Skin: Negative for: Rash Neurological: Negative for: Weakness, Numbness, Dizziness Physical Exam - Physical Exam Appears: Well, Non-toxic, No Acute Distress Skin: Normal Color, Warm Head: Atraumatic, Normacephalic Eye(s): bilateral: Normal Inspection, PERRL, EOMI Ear(s): Bilateral: Normal Nose: Normal Oral Mucosa: Moist Neck: Normal ROM, Supple Chest: Symmetrical, No Tenderness Cardiovascular: Rhythm Regular Respiratory: No Accessory Muscle Use, Other (Normal inspiratory) Gastrointestinal/Abdominal: Soft, No Tenderness, No Distention Pelvic: No Vaginal Bleeding, Vaginal Discharge (Mild in the vault), Cervical Mot ion Tenderness, Adnexal Tenderness (Bilateral), Tender Uterus, Other (No lesions, Chaperoned by DENNY Vance) Neurological/Psych: Oriented x3, Normal Speech, Normal Cranial Nerves (Grossly intact) Gait: Steady ED Course And Treatment - Laboratory Results Lab Results: Urine Color Yellow (YELLOW) 10/23/18 23:38 Urine Clarity Clear (Clear) 10/23/18 23:38 Urine pH 6.0 (5.0-8.0) 10/23/18 23:38 Ur Specific Williams 1.026 (1.003-1.030) 10/23/18 23:38 Urine Protein 1+ mg/dL (NEGATIVE) H 10/23/18 23:38 Urine Glucose (UA) Normal mg/dL (Normal) 10/23/18 23:38 Urine Ketones Negative mg/dL (NEGATIVE) 10/23/18 23:38 Urine Blood 2+ (NEGATIVE) H 10/23/18 23:38 Urine Nitrate Negative (NEGATIVE) 10/23/18 23:38 Urine Bilirubin Negative (NEGATIVE) 10/23/18 23:38 Urine Urobilinogen Normal mg/dL (0.2-1.0) 10/23/18 23:38 Ur Leukocyte Esterase Neg William/uL (Negative) 10/23/18 23:38 Urine WBC (Auto) 1 /hpf (0-5) 10/23/18 23:38 Urine RBC (Auto) 17 /hpf (0-3) H 10/23/18 23:38 Ur Squamous Epith Cells 1 /hpf (0-5) 10/23/18 23:38 O2 Sat by Pulse Oximetry: 100 (Room air) Pulse Ox Interpretation: Normal Medical Decision Making Medical Decision Making: Patient retested and retreated, started on flagyl for possible trichomonas or bacterial vaginitis, she will await culture results and follow up at [facility]. 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 - Scribe Statement The provider has reviewed the documentation as recorded by the Scribe Preet Basurto All medical record entries made by the Danielaibmigel were at my direction and personally dictated by me. I have reviewed the chart and agree that the record accurately reflects my personal performance of the history, physical exam, medical decision making, and the department course for this patient. I have also personally directed, reviewed, and agree with the discharge instructions and disposition.
== END 2018-10-24 00:54 | disposition home or self-care (01) ==
LOC: C.ER 23:01
DX: N72 Inflammatory disease of cervix uteri (principal)
CPT/HCPCS: 81001; 81025; 86592; 86780; 87070; 87491; 87591; 96372; 99284; J0696

== ENCOUNTER 2018-12-09 19:35 | Emergency (ER) | payer OTHER ==
[2018-12-09 19:35] VITALS: BMI 23.0
[2018-12-09 19:49] VITALS: BP 124/80; PULSE 89; RESP 16; TEMP 99.7; O2SAT 100
--- NOTE | 2018-12-09 20:14 | C.PDOC ---
History Of Present Illness 28 y/o female presents to the ED complaining of a sore throat for the past few days. Associated with painful swallowing. Patient also reports having bodyaches and chills. No documented temperature. + Sick contact in patients son, who was seen here and diagnosed with URI. Time Seen by Provider: 12/09/18 19:39 Chief Complaint (Nursing): ENT Problem History Per: Patient History/Exam Limitations: None Onset/Duration Of Symptoms: Days Current Symptoms Are (Timing): Still Present Past Medical History Reviewed: Historical Data, Nursing Documentation, Vital Signs Vital Signs: Last Vital Signs Temp 99.7 F H 12/09/18 19:45 Pulse 89 12/09/18 19:45 Resp 16 12/09/18 19:45 BP 124/80 12/09/18 19:45 Pulse Ox 100 12/09/18 19:45 Surgical History: No Surg Hx - [facility] Procedures INJECT/INFUSE NEC (06/10/13) Family History: States: Unknown Family Hx - Social History Hx Tobacco Use: Yes Hx Alcohol Use: No Hx Substance Use: No - Immunization History Hx Tetanus Toxoid Vaccination: Yes Hx Influenza Vaccination: No Hx Pneumococcal Vaccination: No Review Of Systems Constitutional: Positive for: Chills, Other (Bodyaches) Eyes: Negative for: Vision Change, Redness ENT: Positive for: Throat Pain, Other (Painful swallowing) Cardiovascular: Negative for: Chest Pain Respiratory: Negative for: Shortness of Breath, Wheezing Gastrointestinal: Negative for: Nausea, Vomiting, Diarrhea Musculoskeletal: Negative for: Back Pain Skin: Negative for: Rash Neurological: Negative for: Weakness, Numbness, Dizziness Physical Exam - Physical Exam Appears: Well, Non-toxic, No Acute Distress Skin: Normal Color, Warm, No Rash Head: Normacephalic Eye(s): bilateral: Normal Inspection (no scleral icterus), PERRL, EOMI Ear(s): Bilateral: Normal (no drainage) Oral Mucosa: Moist Throat: Exudate (Enlarged tonsils bilaterally, with exudates), Other (Uvula midline, patient able to swallow) Neck: Normal ROM, Supple Lymphatic: No Adenopathy Chest: Symmetrical Respiratory: No Accessory Muscle Use, Other (Normal inspiratory effort) Extremity: Bilateral: Atraumatic, Normal ROM Pulses: Left Radial: Normal, Right Radial: Normal Neurological/Psych: Oriented x3, Normal Cranial Nerves Gait: Steady ED Course And Treatment O2 Sat by Pulse Oximetry: 100 (RA) Pulse Ox Interpretation: Normal Medical Decision Making Medical Decision Making: Impression: Tonsillitis Patient is resting comfortably, able to swallow and tolerate PO fluids. Will discharge patient home with rx for amoxicillin and motrin. Given doses of each in the ED. Patient counseled regarding diagnosis and follow up instructions. 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 - Scribe Statement The provider has reviewed the documentation as recorded by the Danielaibmigel Espinoza All medical record entries made by the Danielaibmigel were at my direction and personally dictated by me. I have reviewed the chart and agree that the record accurately reflects my personal performance of the history, physical exam, medical decision making, and the department course for this patient. I have also personally directed, reviewed, and agree with the discharge instructions and disposition.
== END 2018-12-09 20:35 | disposition home or self-care (01) ==
LOC: C.ER 19:35
DX: J03.90 Acute tonsillitis, unspecified (principal); F17.210 Nicotine dependence, cigarettes, uncomplicated

== ENCOUNTER 2018-12-18 04:11 | Emergency (ER) | payer OTHER ==
[2018-12-18 04:11] VITALS: BMI 23.0
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
[2018-12-18 06:56] VITALS: BP 117/82; PULSE 100; TEMP 99.2
[2018-12-18 07:05] VITALS: RESP 16
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
[2018-12-19 06:58] VITALS: O2SAT 97
== END 2018-12-18 07:00 | disposition home or self-care (01) ==
LOC: C.ER 04:11
DX: S10.93XA Contusion of unspecified part of neck, initial encounter (principal); Y08.89XA Assault by other specified means, initial encounter